=== PATIENT | male | born 1965 | race Caucasian/White ===

== ENCOUNTER → 2016-06-06 | Outpatient (CLI) | payer BC ==
[2015-08-20 12:00] VITALS: BP 133/74
[~2016-06-06] MED LIST: ESOM20CA30 PO; FENO160T12 PO; IBUP200T77 PO; LOSA50TA6 PO; SIMV40TA3 PO
--- NOTE | 2016-06-07 09:07 | RAD ---
Radionuclide MUGA scan, 06/06/2016: History: Nonischemic cardiomyopathy The study was performed utilizing 21 mCi of technetium 99m and a labeled red blood cell technique. The left ventricular ejection fraction was calculated at 37%. Left ventricular hypokinesis is evident in the septal region. IMPRESSION: Low left ventricular ejection fraction of 37%.
== END | disposition home or self-care (01) ==
LOC: NM 07:25
PROVIDERS: ATTEND Internal Medicine Cardiovascular Disease
DX: I42.9 Cardiomyopathy, unspecified (principal)
CPT/HCPCS: 78472; 96374; A9560

== ENCOUNTER → 2019-02-24 | Outpatient (CLI) | payer BC ==
[2015-08-20 12:00] VITALS: BP 133/74
[~2019-02-24] MED LIST changes: +LOSA-73 PO; -LOSA50TA6 PO; +SIMV40TA18 PO; -SIMV40TA3 PO
--- NOTE | 2019-02-24 10:06 | CARD ---
MR#: [id number] Date of Study: 02/24/2019 Ordering Physician: BEULAH GUNN, Referring Physician: BEULAH GUNN, Tech: Renee John APPROVED REPORT EXAM: Two-dimensional and M-mode echocardiogram with Doppler and color Doppler. Other Information Quality : AverageHR: 72bpm Technically limited study due to body habitus. INDICATION Cardiomyopathy RISK FACTORS Hypertension Hyperlipidemia Diabetes 2D DIMENSIONS RVDd3.4 (2.9-3.5cm)Left Atrium(2D)3.7 (1.6-4.0cm) IVSd1.1 (0.7-1.1cm)Aortic Root(2D)3.3 (2.0-3.7cm) LVDd5.6 (3.9-5.9cm)LVOT Diameter2.1 (1.8-2.4cm) PWd1.0 (0.7-1.1cm)LVDs3.4 (2.5-4.0cm) FS (%) 39.2 %SV104.7 ml LVEF(%)69.1 (>50%) Aortic Valve AoV Peak Shaheed.211.8cm/sAoV VTI42.5cm AO Peak GR.17.9mmHgLVOT Peak Shaheed.106.1cm/s LVOT VTI 21.78cmAO Mean GR.11mmHg ANA M (VMAX)1.54ze8MIY (VTI)1.76cm2 Mitral Valve MV E Nknfszan75.0cm/sMV DECEL RDTM651aq MV A Jjbgulew36.8cm/sMV GFT47lv E/A Ratio1.6MVA (PHT)3.92cm2 TDI E/Lateral E'9.6E/Medial E'9.0 Tricuspid Valve TR P. Nuahpuhm227pw/sRAP [id number] TR Peak Gr.37qbLyTXFW35yoTl Pulmonary Vein S1 Dijnhgrl57.8cm/sD2 Xbwruaax19.5cm/s PVa vtymtced912nryb LEFT VENTRICLE The left ventricle is normal size. There is borderline concentric left ventricular hypertrophy. The s ystolic function is mildly impaired. The Ejection Fraction is 40-45%. There is global hypokinesis of the left ventricle. Septal motion consistent with conduction abnormality. Tissue Doppler imaging reve als mild left ventricular diastolic dysfunction. RIGHT VENTRICLE The right ventricle is normal size. There is normal right ventricular wall thickness. The right ventr icular systolic function is normal. ATRIA The left atrium is borderline dilated. The right atrium is borderline dilated. The interatrial septum is intact with no evidence for an atrial septal defect or patent foramen ovale as noted on 2-D or Do ppler imaging. AORTIC VALVE The aortic valve is calcified and not well visualized. Doppler and Color Flow revealed no significant aortic regurgitation. Calculated aortic valve area is 1.76 cm2 with maximum pressure gradient of 19 mmHg and mean pressure gradient of 12 mmHg. MITRAL VALVE The mitral valve is normal in structure and function. There is no evidence of mitral valve prolapse. There is no mitral valve stenosis. Doppler and Color Flow revealed no mitral valve regurgitation note d. TRICUSPID VALVE The tricuspid valve is normal in structure and function. Doppler and Color Flow revealed trace tricus pid regurgitation with an estimated PAP of 36 mmHg. There is no tricuspid valve stenosis. PULMONIC VALVE The pulmonic valve is not well visualized. Doppler and Color Flow revealed no pulmonic valvular regur gitation. There is no pulmonic valvular stenosis. GREAT VESSELS The aortic root is normal in size. The IVC is normal in size and collapses >50% with inspiration. PERICARDIAL EFFUSION There is no evidence of significant pericardial effusion. Critical Notification Critical Value: No <Conclusion> The systolic function is mildly impaired. The Ejection Fraction is 40-45%. There is global hypokinesis of the left ventricle. Septal motion consistent with conduction abnormali ty. Signed by : Beulah Gunn, Electronically Approved : 02/24/2019 10:06:01
== END | disposition home or self-care (01) ==
LOC: ECHO 07:54
PROVIDERS: ATTEND Internal Medicine Cardiovascular Disease
DX: I35.8 Other nonrheumatic aortic valve disorders (principal); I42.9 Cardiomyopathy, unspecified; I11.9 Hypertensive heart disease without heart failure; E78.5 Hyperlipidemia, unspecified; E11.9 Type 2 diabetes mellitus without complications
CPT/HCPCS: 93306